=== PATIENT | female | born 1990 ===

== ENCOUNTER 2024-05-16 12:43 | Outpatient (CLI) | payer OTHER | END 2024-05-16 12:45 | disposition home or self-care (01) | LOC: PRENATAL 12:43 | PROVIDERS: ATTEND Obstetrics & Gynecology Maternal & Fetal Medicine | DX: O36.80X0 Pregnancy with inconclusive fetal viability, not applicable or unspecified (principal); O46.91 Antepartum hemorrhage, unspecified, first trimester; Z3A.09 9 weeks gestation of pregnancy ==